=== PATIENT | male | born 1985 | race African-American/Black ===

== ENCOUNTER 2019-10-05 08:55 | Emergency (ER) | payer MEDICAID ==
[~2019-10-05] VITALS: Ht 182.9 cm; Wt 86.0 kg
[2019-10-05 09:00] VITALS: BP 157/50
[2019-10-05 10:24] LABS: BASOPHILS % 1.2 % (0.0-2.0); EOSINOPHILS % 1.4 % (0.0-5.0); HEMATOCRIT. 42.8 % (42.0-52.0); HEMOGLOBIN. 14.4 g/dL (14.0-18.0); LYMPHOCYTES % 56.9 % (20.0-50.0); MEAN CORPUSCULAR HEMOGLOBIN 28.9 pg (28.0-32.0); MEAN CORPUSCULAR VOLUME 85.5 fL (80.0-94.0); MEAN PLATELET VOLUME 9.8 fl (7.4-10.4); MONOCYTES % 9.7 % (2.0-8.0); NEUTROPHILS % 30.8 % (40.0-76.0); PLATELET 202 x1000/uL (130-400); RED CELL DISTRIBUTION WIDTH 14.6 % (11.6-14.6)
[2019-10-05 10:31] LABS: CHLORIDE 106 mEq/L (98-107)
== END 2019-10-05 11:28 | disposition home or self-care (01) ==
LOC: ER 08:55
DX: M79.10 Myalgia, unspecified site (principal); R53.1 Weakness
CPT/HCPCS: 36415; 80048; 99283